=== PATIENT | female | born 1965 | race African-American/Black ===

== ENCOUNTER 2020-02-12 10:24 | Emergency (ER) | payer MEDICAID ==
[~2020-02-12] VITALS: Ht 157.5 cm; Wt 82.0 kg
[2020-02-12] MEDS ORDERED: ACETAMINOPHEN 325MG TABLET PO STA (10:51)
[2020-02-12 11:21] LABS: BASOPHILS % 0.5 % (0.0-2.0); EOSINOPHILS % 0.1 % (0.0-5.0); HEMATOCRIT. 36.2 % (36.0-48.0); HEMOGLOBIN. 11.5 g/dL (12.0-16.0); LYMPHOCYTES % 47.3 % (20.0-50.0); MEAN CORPUSCULAR HEMOGLOBIN 22.8 pg (28.0-32.0); MEAN CORPUSCULAR VOLUME 71.7 fL (81.0-99.0); MEAN PLATELET VOLUME 8.5 fl (7.4-10.4); MONOCYTES % 5.9 % (2.0-8.0); NEUTROPHILS % 46.2 % (40.0-76.0); PLATELET 191 x1000/uL (130-400); RED BLOOD CELL COUNT 5.05 mill/uL (4.2-5.4); RED CELL DISTRIBUTION WIDTH 14.8 % (11.6-14.6)
[2020-02-12 11:26] LABS: CHLORIDE 110 mEq/L (98-107)
[2020-02-12] MEDS ORDERED: POTASSIUM CHLORIDE 20MEQ TABLET SR PO ONE (12:00)
[2020-02-12 14:40] VITALS: BP 113/58
== END 2020-02-12 14:44 | disposition home or self-care (01) ==
LOC: ER 10:33
DX: R07.89 Other chest pain (principal); Y04.0XXA Assault by unarmed brawl or fight, initial encounter; Y93.89 Activity, other specified; Y92.89 Other specified places as the place of occurrence of the external cause; R03.0 Elevated blood-pressure reading, without diagnosis of hypertension; E87.6 Hypokalemia; I51.7 Cardiomegaly
CPT/HCPCS: 36415; 71045; 80053; 84484; 85025; 93005; 99285